=== PATIENT | male | born 1955 | race Caucasian/White ===

== ENCOUNTER 2020-02-18 17:40 | Inpatient (IN) | payer OTHER ==
[~2020-02-18] VITALS: Ht 172.7 cm; Wt 113.0 kg
[2020-02-18] VITALS (11 sets, daily range): BP systolic 93–121; BP diastolic 44–78
[~2020-02-18 17:40] MED LIST: ASPIR-TRIN325 MG PO; DAYPRO600 M1 PO; DENIES MEDS; ELIQUIS5 M1 PO; LANOXIN250 MCG PO; LIPITOR40 MG PO; LOPRESSOR25 MG PO; MEDROL DOSEPAK4 MG PO; METOPROLOL TART50 M1 PO; NKHM; PEN-VEE K500 MG PO; ROBAXIN750 MG PO; TOPROL XL50 M1 PO; TRAMADOL HCL50 MG PO; VITAMIN D-32000 UNIT PO; ZITHROMAX250 MG PO
--- NOTE | 2020-02-18 17:56 | NUR ---
PT STATES HE IS VOMITING CLEAR MUCOUS FROM HIS COUGH. PT STATES "I AM NOT STAYING AND BEING ADMITTED IF THERE ARE NO VISITORS."
[2020-02-18 18:40] LABS: HEMATOCRIT 42.1 % (42.0-52.0); MEAN CORPUSCULAR HGB 23.7 pg (27.0-31.0); MEAN CORPUSCULAR HGB CONC 30.4 g/dl (33.0-37.0); MEAN PLATELET VOLUME 8.9 fl (9.6-12.3); PLATELET COUNT AUTOMATED 403 10*3/uL (130-400); RED CELL DISTRI WIDTH 20.3 % (0-14.5)
[2020-02-18 18:54] LABS: INTERNATIONAL NORM RATIO 1.3 (2.0-3.5)
[2020-02-18 18:58] LABS: ALBUMIN 2.6 gm/dl (3.1-4.5); ALKALINE PHOSPHATASE 85 U/L (45-117); BUN 52 mg/dl (7-24); CHLORIDE 97 mmol/L (98-107); SGOT/AST 19 IU/L (3-35); SGPT/ALT 14 U/L (12-78); SODIUM 130 mmol/L (136-145); TOTAL PROTEIN 9.2 gm/dL (6.4-8.2)
[2020-02-18 18:59] LABS: TROPONIN I < 0.015 ng/ml (<0.045)
[2020-02-18 19:03] LABS: PLATELET SUFFICIENCY HIGH (NORMAL); TOTAL CELLS COUNTED 100 #CELLS
--- NOTE | 2020-02-18 19:03 | NUR ---
NURSE TO NURSE REPORT GIVEN TO THIS RN.EKG IS COMPLETED AND RESULTS GIVEN TO .
[2020-02-18 19:04] LABS: MICROCYTOSIS SLIGHT
--- NOTE | 2020-02-18 19:29 | NUR ---
MD [place] AT BEDSIDE TO SPEAK WITH PT REGARDING CARE DUE TO PT REFUSAL OF CARE.PT FAMILY MEMBER BROUGHT TO ROOM PER MD.
--- NOTE | 2020-02-18 19:39 | NUR ---
PT HAS SMALL MINOR SCAB TO BILATERAL WRISTS FROM HIS DOG.PT DENIES ANY OTHER OPEN WOUNDS SORES OR CUTS AT THIS TIME.
--- NOTE | 2020-02-18 19:48 | NUR ---
PT DOES HAVE BILATERAL LEG WRAPS.PT STATES HE HAS HX OF INFECTION IN HIS LEGS AND DOES FOLLOW UP WITH A
--- NOTE | 2020-02-18 19:48 | NUR ---
INFUSION OF CARDIZEM INITIATED @ 10MG/HR.BOLUS GIVEN OF 10MG PER EMAR.
--- NOTE | 2020-02-18 19:50 | NUR ---
MD ADVISES PT IS NPO DUE TO RESULT OF CT SHOWING SMALL BOWEL OBSTRUCTION.
--- NOTE | 2020-02-18 19:55 | NUR ---
PT REFUSES TO HAVE DRESSING ON HIS LEGS UNWRAPPED AND PHOTOS TAKEN AT THIS TIME.PT STATES HE FOLLOW [facility] HE BELIEVES IT IS DR KIM.
--- NOTE | 2020-02-18 20:06 | NUR ---
PT PROMPTED FOR URINE SPECIMEN.
--- NOTE | 2020-02-18 20:41 | NUR ---
PT REFUSING TO STAY IN BED.PT ASSISTED IN TO W/C AT BEDSIDE.SON IN ROOM.
--- NOTE | 2020-02-18 20:53 | NUR ---
CARDIZEM INFUSION TITRATED TO 15MG/HR.
--- NOTE | 2020-02-18 21:55 | NUR ---
DR JACOBS AT BEDSIDE.
--- NOTE | 2020-02-18 22:03 | NUR ---
[facility] CONTACTED AND REQUEST ADDITIONAL TIME PRIOR TO PT COMING TO UNIT DUE TO DUE TO JUST RECEIVED RECENT ADMISSION.
--- NOTE | 2020-02-18 22:06 | NUR ---
PT AND FAMILY GIVE PASSWORD "BUSTER".
--- NOTE | 2020-02-18 22:38 | NUR ---
AWAITING [facility] TO CONTACT FOR PT TRANSPORT TO UNIT.
--- NOTE | 2020-02-18 23:00 | NUR ---
A 64,YEAR OLD MALE admitted to [facility], under the services of LUIS Fernandez DO with a diagnosis of FRANCISCO,SEVER SEPSIS, AFIB/RVR. Chief complaint is N/V. Patient arrived via stretcher from ER. Monitor applied. Initial assessment completed. Vital signs taken and recorded. LUIS FERNANDEZ DO notified of admission to the unit. Orders received. See assessment for past medical history, medications and allergies. Patient and/or family oriented to unit. [facility] visitation policy reviewed. Clothing/patient valuable form completed. YASMINE CANDELARIO
--- NOTE | 2020-02-18 23:21 | NUR ---
PATIENT IS REFUSING NG TUBE AT THIS TIME DOCTOR REYNALDO INFORMED AT THIS TIME.
--- NOTE | 2020-02-18 23:24 | NUR ---
PATIENT IS REFUSING PHOTOS OF ANY WOUNDS ASKED BY ER AND MYSELF REFUSING TO HAVE LEGS UNWRAPPED.PATIENT HAS ONEIN HIS FOLD ON LEFT INNER BUTTOCK BANDAGES TO BILAT LEGS UPPER AND LOWER AND TO BILAT FEET BILAT LEG WRAPS. SKIN TEAR TO INNER LEFT KNEE AREA. ALL NOTED BUT IS REFUSING TO HAVE THEM PHOTOGRAPHED AT THIS TIME.
--- NOTE | 2020-02-18 23:47 | NUR ---
SHEY CONSULTED ORDERS FOR IV FLUIDS AND DIG GIVEN IF HEART RTAE IS ABOVE 120 MAY REPEAT DOSE OF DIG IN 2 HOURS.
--- NOTE | 2020-02-18 23:47 | NUR ---
CONSULT CALLED TO [facility] SAID TO LEAVE PT NPO TONIGHT NO OTHER ORDERS AT THIS TIME.
[2020-02-19] VITALS (69 sets, daily range): BP systolic 73–114; BP diastolic 35–65
--- NOTE | 2020-02-19 00:02 | NUR ---
PATIENT STATING THAT HE WANTS TO SIGN HIMSELF OUT CALLED DOCTOR REYNALDO WHO IS UP ON THE FLOOR TO TALK TO HIM.
[2020-02-19 01:25] LABS: ARTERIAL BLOOD GAS PH 7.438 (7.35-7.45)
--- NOTE | 2020-02-19 02:37 | NUR ---
PATIENT BECOMING CONFUSED CLIMBING OUT OF BED. I AGAIN ASKED PATIENT IF HE NEEDED A BREATHING TUBE WOULD HE WANT ONE HE SAID NO HE DOEW NOT WANT IT. OTHER RN'S THERE WHO HEARD HIM SAY IT. PATIENT WAS GIVEN SECOND DOSE OF DIG FOR HEART RATE OF 140'S. PATIENT IS STILL BREATHING AT 40-50'S BREATHS PER MIN.
--- NOTE | 2020-02-19 03:30 | NUR ---
Pt placed on BiPap 12/6 and 40% FiO2. Alarms on and audible. Pt resps in the mid 40's. Pt is super anxious.
--- NOTE | 2020-02-19 03:38 | NUR ---
MATT TAYLOR [id number] Please refer to the physician's history and physical for past medical history, comorbid conditions, and allergies. Diagnosis: FRANCISCO SEVERE SEPSIS ATRIAL FIBRILLATION WITH Jessee Score: 16,AT RISK WOUND DESCRIPTIONS: This nurse along with Tamie Gonzalez RN went to evaluate patient for skin impairments at this time. Patient refused assessment and photographs at this time. Visible dressings noted to bilateral lower extermities. This nurse was told by nurse caring for patient that patient's follows with podiatry Dr. Sorensen outside of the facility. Nurse caring for patient states when patient was taking off his pants there was an area noted to his fold in left inner buttocks. Partial thickness area noted to inner left knee. Surface the patient is resting on: Isoflex SKIN PREVENTION RECOMMENDATION: 1. Pressure redistribution support surface as appropriate 2. Elevate heels 3. Remove boots/TEDS every shift and reapply 4. Head of bed 30 degrees as tolerated 5. Assess nutrition and hydration 6. Manage moisture 7. Avoid the use of containment devices while in bed 8. Use absorptive products on surfaces limit layers of linens on bed 9. Turn and reposition every 1-2 hours in bed and every 1 hour in chair as tolerated 10. Weight shifts every 15 minutes while up in chair 11. Offloading with pillows or device to keep heels elevated off bed 12. Monitor skin at least every shift 13. Inspect under medical devices twice a day WOUND TREATMENT RECOMMENDATIONS: Wheelchair cushion when oob Heel raiser pro boots to bilateral feet while out of bed. Podiatry is already on consult.
--- NOTE | 2020-02-19 03:50 | NUR ---
PATIENT RIPPING OFF BIPAP CALLED DOCTOR REYNALDO ORDERS RECIEVED FOR DOYLE BECAUSE PATIENT HAS NOT URINATED AT ALL SINCE COMING TO ER. 18F DOYLE PLACED 400CC OF URINE OUT AT THIS TIME. PATIENT PLACED IN RESTARINTS DUE TO NOT LEAVING BIPAP ON PATIENT IS CONFUSED AND TALKING ABOUT FOLDING BLOUSES ON TABLE AND SKIRTS THAT ARE NOT THERE.
[2020-02-19 04:00] LABS: CLARITY CLEAR (CLEAR); COLOR YELLOW (YELLOW); GLUCOSE NEGATIVE (NEGATIVE)
[2020-02-19 04:01] LABS: BILIRUBIN 1+ (NEGATIVE); BLOOD 1+ (NEGATIVE); KETONE NEGATIVE (NEGATIVE); PH 5.5 (5.0-9.0); SPECIFIC GRAVITY 1.025 (1.005-1.030); UROBILINOGEN 0.2 E.U./dl (0.2-1.0)
[2020-02-19 04:06] LABS: LEUKO ESTERASE TRACE (NEGATIVE); NITRITE NEGATIVE (NEGATIVE)
[2020-02-19 04:09] LABS: BACTERIA 1+; RBC 16-20 rbc/hpf (0-2)
[2020-02-19 05:32] LABS: INTERNATIONAL NORM RATIO 1.4 (2.0-3.5)
[2020-02-19 05:39] LABS: ALBUMIN 2.3 gm/dl (3.1-4.5); CREATININE 2.1 mg/dL (0.70-1.30); POTASSIUM 5.6 mmol/L (3.5-5.1); TOTAL PROTEIN 7.9 gm/dL (6.4-8.2)
[2020-02-19 05:44] LABS: THYROID STIM HORMONE (HS) 3.5 uIU/ml (0.358-4.75)
[2020-02-19 05:48] LABS: TROPONIN I 0.114 ng/ml (<0.045)
[2020-02-19 05:50] LABS: HEMATOCRIT 41.8 % (42.0-52.0); MEAN CORPUSCULAR HGB 23.7 pg (27.0-31.0); MEAN CORPUSCULAR HGB CONC 30.4 g/dl (33.0-37.0); MEAN PLATELET VOLUME 9.2 fl (9.6-12.3); PLATELET COUNT AUTOMATED 424 10*3/uL (130-400); RED BLOOD COUNT 5.36 10*6/uL (4.50-5.90); RED CELL DISTRI WIDTH 20.2 % (0-14.5); WHITE BLOOD COUNT 29.1 10*3/uL (4.8-10.8)
--- NOTE | 2020-02-19 06:09 | NUR ---
PATIENT FINALLY RESTING WITH EYES CLOSED SITTING STILL IN BED NOT PULLING AT EVERYTHING PATIENT WAS GIVEN ATIVAN PER DOCTOR REYNALDO ORDERS.
[2020-02-19 06:32] LABS: PLATELET SUFFICIENCY HIGH (NORMAL); TOTAL CELLS COUNTED 100 #CELLS
--- NOTE | 2020-02-19 07:30 | NUR ---
PT INTUBATED AND LINES PLACED EMERGENTLY
--- NOTE | 2020-02-19 07:30 | NUR ---
pt obtunded, on bipap with resp rate 55-62, manual bp 72/doppler, pox 85% stomach greatlty distended with no peristalsis, Dr Montemayor called to bedside Dr Burleson called to bedside, pt intubated # 8ett, ogt placed, centarl line placed and all lines have been confirmed by xray levaphed started at [address] polanco here, and updated on ogt having a 2000cc output, brown and fecal smelling dr Pak here and aware of consult
[2020-02-19 08:10] LABS: VITAMIN D, 25-HYDROXY 21.8 ng/mL (30-100)
--- NOTE | 2020-02-19 08:25 | NUR ---
Dr. Adame notified of wound care recommendations
--- NOTE | 2020-02-19 08:37 | NUR ---
08:00 PT ON BIPAP 12/6 40% WITH RR RANGING FROM 45-55/MIN. SPO2 96% PT INTUBATED BY DR RUBIO WITHOUT INCIDENT: ETT #8 AT 27 CM. BBSs EQUAL AND CLEAR. PT SX'D FOR SMALL JEFF SECRETIONS. SPECIMEN SENT FOR C&S. PT PLACED ON VENT: AC2-/500/60%/+8. PT STALBE. VENT CHECKED AND FX'ING.
[2020-02-19 09:44] LABS: HEMATOCRIT 39.9 % (42.0-52.0); MEAN CELL VOLUME 77.3 fl (80.0-94.0); MEAN CORPUSCULAR HGB 23.6 pg (27.0-31.0); MEAN CORPUSCULAR HGB CONC 30.6 g/dl (33.0-37.0); MEAN PLATELET VOLUME 9.2 fl (9.6-12.3); NUCLEATED RED BLOOD CELL 0.1 % (0.0-0.0); PLATELET COUNT AUTOMATED 356 10*3/uL (130-400); RED BLOOD COUNT 5.16 10*6/uL (4.50-5.90); RED CELL DISTRI WIDTH 19.9 % (0-14.5); WHITE BLOOD COUNT 28.6 10*3/uL (4.8-10.8)
[2020-02-19 09:58] LABS: CREATININE 2.38 mg/dL (0.70-1.30); POTASSIUM 5.5 mmol/L (3.5-5.1); TOTAL PROTEIN 7.2 gm/dL (6.4-8.2)
[2020-02-19 10:00] LABS: TOTAL CELLS COUNTED 100 #CELLS
[2020-02-19 10:01] LABS: PLATELET SUFFICIENCY NORMAL (NORMAL)
[2020-02-19 10:29] LABS: ABG BASE EXCESS -0.6 mmol/L (-2.0-2.0); ARTERIAL BLOOD GAS PH 7.395 (7.35-7.45)
--- NOTE | 2020-02-19 10:35 | NUR ---
Spa Host in to see patient. Patient was intubated. Spa Host will continue to follow for any discharge planning needs. Discharge plan undecided at this time.
--- NOTE | 2020-02-19 10:59 | NUR ---
CONTACTED DR DIAL FOR ABG RESULTS. PER DR DIAL DECREASE FIO2 TO 50% WITH ABG TO FOLLOW IN 2 HRS. FIO2 DECREASED TO 50%
--- NOTE | 2020-02-19 11:38 | NUR ---
family has been updated and are here in lobby to talk with doctors Dr Kenny placing arterial line
[2020-02-19 12:35] LABS: HEMATOCRIT 35.7 % (42.0-52.0); MEAN CELL VOLUME 76.8 fl (80.0-94.0); MEAN CORPUSCULAR HGB 23.9 pg (27.0-31.0); MEAN CORPUSCULAR HGB CONC 31.1 g/dl (33.0-37.0); PLATELET COUNT AUTOMATED 279 10*3/uL (130-400); RED BLOOD COUNT 4.65 10*6/uL (4.50-5.90); RED CELL DISTRI WIDTH 19.6 % (0-14.5); WHITE BLOOD COUNT 26.9 10*3/uL (4.8-10.8)
[2020-02-19 12:50] LABS: ALBUMIN 1.7 gm/dl (3.1-4.5); CREATININE 2.16 mg/dL (0.70-1.30); POTASSIUM 5.1 mmol/L (3.5-5.1); TOTAL PROTEIN 6.2 gm/dL (6.4-8.2)
[2020-02-19 12:53] LABS: PLATELET SUFFICIENCY NORMAL (NORMAL); TOTAL CELLS COUNTED 100 #CELLS; VACUOLATION OF NEUTROPHILS SLIGHT
[2020-02-19 12:54] LABS: BURR CELLS FEW; MICROCYTOSIS SLIGHT; POLYCHROMASIA SLIGHT
--- NOTE | 2020-02-19 13:00 | NUR ---
CONTINUES TO BE INTUBATED BP CONTROLLED WITH LEVAPHED AND VASOPRESSIN ALL DOCS KEPT UPDATED
[2020-02-19 13:18] LABS: ABG BASE EXCESS -1.2 mmol/L (-2.0-2.0); ARTERIAL BLOOD GAS PH 7.408 (7.35-7.45)
[2020-02-19 14:05] LABS: ABG BASE EXCESS -1.1 mmol/L (-2.0-2.0); ARTERIAL BLOOD GAS PH 7.401 (7.35-7.45)
--- NOTE | 2020-02-19 14:12 | NUR ---
PER DR DIAL, DECREASE FIO2 TO 40% PO2 172 ON 50%
[2020-02-19 16:25] LABS: ABG BASE EXCESS -0.7 mmol/L (-2.0-2.0); ARTERIAL BLOOD GAS PH 7.392 (7.35-7.45)
--- NOTE | 2020-02-19 16:57 | NUR ---
16:30 FIO2 DECREASED TO 30% PER DR DIAL. ABG TO FOLLOW IN 2 HRS.
[2020-02-19 18:55] LABS: ARTERIAL BLOOD GAS PH 7.396 (7.35-7.45)
--- NOTE | 2020-02-19 19:10 | NUR ---
PRIYA CALLED TO DR DIAL
--- NOTE | 2020-02-19 19:57 | NUR ---
ASSESSMENT COMPLETE. OG CONTINUES TO DRAIN GREEN LIQUID. ETT 25 AT LIP. ABDOMEN SOFTLY DISTENDED WITH NO BOWEL SOUNDS. IJ AND ART LINES SECURE. VASOPRESSIN CONTINUES AT MAXED RATE OF 0.04UNITS/MIN, DOUBLE STRENGTH LEVOPHED AT 20MCG/MIN, LACTATED RINGERS AT 100CC/HR, AND PROPOFOL AT 20MCG/KG/MIN. DOYLE PATENT FOR CLOUDY URINE.
[2020-02-20] VITALS (55 sets, daily range): BP systolic 72–113; BP diastolic 51–75
[2020-02-20 05:22] LABS: ALBUMIN 1.5 gm/dl (3.1-4.5); ALKALINE PHOSPHATASE 50 U/L (45-117); CHLORIDE 99 mmol/L (98-107); CREATININE 1.42 mg/dL (0.70-1.30); POTASSIUM 4.5 mmol/L (3.5-5.1); SGOT/AST 28 IU/L (3-35); SGPT/ALT 8 U/L (12-78); SODIUM 132 mmol/L (136-145); TOTAL PROTEIN 5.9 gm/dL (6.4-8.2)
[2020-02-20 05:26] LABS: BUN 55 mg/dl (7-24)
--- NOTE | 2020-02-20 05:34 | NUR ---
OTHER THAN HR 120'S, NO OTHER CHANGES.
[2020-02-20 06:00] LABS: HEMATOCRIT 35.6 % (42.0-52.0); MEAN CELL VOLUME 77.9 fl (80.0-94.0); MEAN CORPUSCULAR HGB 23.6 pg (27.0-31.0); MEAN CORPUSCULAR HGB CONC 30.3 g/dl (33.0-37.0); MEAN PLATELET VOLUME 9.7 fl (9.6-12.3); PLATELET COUNT AUTOMATED 271 10*3/uL (130-400); RED BLOOD COUNT 4.57 10*6/uL (4.50-5.90); RED CELL DISTRI WIDTH 19.1 % (0-14.5); WHITE BLOOD COUNT 20.2 10*3/uL (4.8-10.8)
--- NOTE | 2020-02-20 06:19 | NUR ---
DR JACOBS INFORMED OF HR 140'S, TEMP 100.6, AND BP. INSTRUCTED TO GIVE TYLENOL ORDERED.
--- NOTE | 2020-02-20 06:26 | NUR ---
TYLENOL SUPPOSITORY GIVEN ORDERED.
[2020-02-20 06:57] LABS: BURR CELLS MODERATE; MICROCYTOSIS SLIGHT; PLATELET SUFFICIENCY NORMAL (NORMAL); POLYCHROMASIA SLIGHT; TOTAL CELLS COUNTED 100 #CELLS; TOXIC GRANULATION SLIGHT; VACUOLATION OF NEUTROPHILS SLIGHT
[2020-02-20 07:27] LABS: ABG BASE EXCESS 0.4 mmol/L (-2.0-2.0); ARTERIAL BLOOD GAS PH 7.396 (7.35-7.45)
--- NOTE | 2020-02-20 09:00 | NUR ---
PLACED ON HYPOTHERMIA BLANKET FOR RECTAL TEMP 100.9
--- NOTE | 2020-02-20 10:22 | NUR ---
ARRANGEMENTS BEING MADE FOR TRANSFER OUT
--- NOTE | 2020-02-20 10:47 | NUR ---
VERSED FOR ANXIETY AND DEEPER SEDATION, PT APPEARS AGITATED DOCTORS TALK BY THE BED
--- NOTE | 2020-02-20 10:54 | NUR ---
FLUID BOLUS PER DR OLIVO
--- NOTE | 2020-02-20 11:00 | NUR ---
VERSED EFFECTIVE RECTAL TEMP 100.6 PRESSORS MAXED OUT, FLUID BOLUS PER PALLAVI HEPARIN DRIP FOR PE PROTOCOL PER PALLAVI
[2020-02-20 11:01] LABS: ACT PARTIAL THROMBO TIME 34.6 SECONDS (20.0-32.1); INTERNATIONAL NORM RATIO 1.4 (2.0-3.5)
[2020-02-20] MEDS ORDERED: [UNRECOGNIZED DRUG - OTHER] IV (12:05)
[2020-02-20] MEDS ORDERED: HEPARIN IV (12:05)
[2020-02-20] MEDS ORDERED: VANCO 1.751.75 GM/25 IV (12:05)
[2020-02-20] MEDS ORDERED: NOREPINEPH IV (12:05)
[2020-02-20] MEDS ORDERED: ZOSYN 4.54.5 GM/100 IV (12:05)
[2020-02-20] MEDS ORDERED: PROTONIX40 M1 IV (12:05)
--- NOTE | 2020-02-20 12:48 | NUR ---
PTS DTR IN TO MILK PASTEURIZER CLOTHING, CELL PHONE AND GLASSES
--- NOTE | 2020-02-20 13:14 | NUR ---
[facility] here to cook pickled meat pt family aware
--- NOTE | 2020-02-20 13:49 | NUR ---
dc to the care of life [facility]
== END 2020-02-20 13:49 | disposition short-term general hospital (02) | DRG 720 ==
LOC: ED 17:40 → EDHOLD 21:33 → ICCU 21:33
PROVIDERS: Emergency Medicine; Internal Medicine; Internal Medicine Critical Care Medicine; Student in an Organized Health Care Education/Training Program; ADMIT Family Medicine
PROC: 03HY32Z Insertion of Monitoring Device into Upper Artery, Percutaneous Approach (ICD-10-PCS; principal; 2020-02-19)
PROC: 4A133B1 Monitoring of Arterial Pressure, Peripheral, Percutaneous Approach (ICD-10-PCS; 2020-02-19)
PROC: 4A133J1 Monitoring of Arterial Pulse, Peripheral, Percutaneous Approach (ICD-10-PCS; 2020-02-19)
PROC: 02HV33Z Insertion of Infusion Device into Superior Vena Cava, Percutaneous Approach (ICD-10-PCS; 2020-02-19)
PROC: B548ZZA Ultrasonography of Superior Vena Cava, Guidance (ICD-10-PCS; 2020-02-19)
PROC: 5A09357 Assistance with Respiratory Ventilation, Less than 24 Consecutive Hours, Continuous Positive Airway Pressure (ICD-10-PCS; 2020-02-19)
PROC: 5A1935Z Respiratory Ventilation, Less than 24 Consecutive Hours (ICD-10-PCS; 2020-02-19)
PROC: 0BH17EZ Insertion of Endotracheal Airway into Trachea, Via Natural or Artificial Opening (ICD-10-PCS; 2020-02-19)
DX: A41.9 Sepsis, unspecified organism (principal); E43 Unspecified severe protein-calorie malnutrition; L03.116 Cellulitis of left lower limb; N17.0 Acute kidney failure with tubular necrosis; K80.20 Calculus of gallbladder without cholecystitis without obstruction; E27.8 Other specified disorders of adrenal gland; I10 Essential (primary) hypertension; D68.69 Other thrombophilia; R65.21 Severe sepsis with septic shock; K55.9 Vascular disorder of intestine, unspecified; D50.9 Iron deficiency anemia, unspecified; D47.3 Essential (hemorrhagic) thrombocythemia; J96.01 Acute respiratory failure with hypoxia; E87.1 Hypo-osmolality and hyponatremia; E87.8 Other disorders of electrolyte and fluid balance, not elsewhere classified; R73.9 Hyperglycemia, unspecified; E78.00 Pure hypercholesterolemia, unspecified; E83.39 Other disorders of phosphorus metabolism; E87.5 Hyperkalemia; E80.6 Other disorders of bilirubin metabolism; K63.89 Other specified diseases of intestine; E66.9 Obesity, unspecified; I48.21 Permanent atrial fibrillation; I48.20 Chronic atrial fibrillation, unspecified; Z82.49 Family history of ischemic heart disease and other diseases of the circulatory system; Z68.38 Body mass index [BMI] 38.0-38.9, adult; Z71.6 Tobacco abuse counseling; Z82.3 Family history of stroke; Z81.2 Family history of tobacco abuse and dependence; Z79.01 Long term (current) use of anticoagulants; Z68.33 Body mass index [BMI] 33.0-33.9, adult